=== PATIENT | female | born 1980 | race Caucasian/White ===

== ENCOUNTER 2019-02-05 10:45 | Outpatient (CLI) | payer BC ==
--- NOTE | 2019-02-05 13:15 | BD ---
DEXA BONE DENSITY STUDY: Date: 02/05/19 HISTORY: Osteoporosis. Early menopause. FINDINGS: Lumbar Spine: BMD (g/cm2) L1 1.310 T-Score: +2.9 L2 1.407 T-Score: +3.4 L3 1.317 T-Score: +2.1 L4 1.214 T-Score: +1.4 Total 1.306 T-Score: +2.4 Left Femoral Neck: 0.984 T-Score: +1.2 Total Femur: 1.215 T-Score: +2.2 IMPRESSION: Normal bone mineral density of the lumbar spine and left femoral neck. POS: TPC
== END 2019-02-05 10:46 | disposition home or self-care (01) ==
LOC: BICMAMMO 10:45
PROVIDERS: ATTEND Obstetrics & Gynecology
DX: Z13.820 Encounter for screening for osteoporosis (principal); E28.39 Other primary ovarian failure; E05.00 Thyrotoxicosis with diffuse goiter without thyrotoxic crisis or storm; Z79.890 Hormone replacement therapy
CPT/HCPCS: 77080

== ENCOUNTER → 2022-07-02 | Outpatient (CLI) | payer BC | LOC: SLEEPLAB 17:30 | PROVIDERS: ATTEND Family Medicine | DX: G47.33 Obstructive sleep apnea (adult) (pediatric) (principal); R53.83 Other fatigue; R40.0 Somnolence; R09.89 Other specified symptoms and signs involving the circulatory and respiratory systems; R51.9 Headache, unspecified; F41.8 Other specified anxiety disorders; E66.9 Obesity, unspecified; Z68.31 Body mass index [BMI] 31.0-31.9, adult | CPT/HCPCS: 95800 ==